=== PATIENT | male | born 1990 | race Caucasian/White ===

== ENCOUNTER → 2019-04-15 | Outpatient (CLI) | payer BC ==
[~2019-04-15] MED LIST: CIPRO 250MG TA250 MG PO; NO HOME MEDICATIONS; NORCO 325 MG-51 TAB PO; PYRIDIUM200 M1 PO
== END ==
LOC: COL.RAD 09:07
DX: R16.1 Splenomegaly, not elsewhere classified (principal)
CPT/HCPCS: Q9967